=== PATIENT | female | born 2000 | race Caucasian/White ===

== ENCOUNTER 2019-12-09 03:22 | Emergency (ER) | payer OTHER, MEDICAID ==
[~2019-12-09] VITALS: Ht 160 cm; Wt 82.1 kg
[2019-12-09 03:49] LABS: ABSOLUTE BASOPHILS 0.1 thou/uL (0.0-0.2); ABSOLUTE EOSINOPHILS 0.3 thou/uL (0.0-0.7); ABSOLUTE LYMPHOCYTES 3.9 thou/uL (0.8-5.3); ABSOLUTE MONOCYTES 0.8 thou/uL (0.0-1.2); ABSOLUTE NEUTROPHILS 6.2 thou/uL (1.6-8.1); BASOPHILS 0.7 %; EOSINOPHILS 2.9 %; HEMATOCRIT 37.2 % (37.0-47.0); HEMOGLOBIN 12.3 gm/dL (12.0-15.0); LYMPHOCYTES 34.2 %; MCH 25.8 pg (26.0-34.0); MCV 78.1 fL (80.0-100.0); MONOCYTES 7.3 %; MPV 8.3 fl. (7.2-11.1); NUCLEATED RBCS 0 /100WBC; PLATELET COUNT* 335 thou/uL (150-400); POLYS 54.9 %; RBC 4.76 mil/uL (4.20-5.00); RDW-CV 15.5 % (10.5-14.5); WBC 11.4 thou/uL (4.0-11.0)
[2019-12-09 04:06] LABS: CREATININE 0.9 mg/dL (0.6-1.3); POTASSIUM 3.5 mmol/L (3.5-5.1)
[2019-12-09 04:10] LABS: ALBUMIN 3.9 g/dL (3.4-5.0); TOTAL BILIRUBIN 0.3 mg/dL (<0.1-1.0); TOTAL PROTEIN 8.2 g/dL (6.4-8.2)
[2019-12-09 04:42] LABS: URINE BILIRUBIN NEGATIVE (Negative); URINE BLOOD NEGATIVE (Negative); URINE CLARITY CLEAR; URINE COLOR YELLOW; URINE GLUCOSE-RANDOM NEGATIVE (Negative); URINE KETONES NEGATIVE (Negative); URINE LEUKOCYTES-REFLEX NEGATIVE (Negative); URINE NITRITE-REFLEX NEGATIVE (Negative); URINE PROTEIN NEGATIVE (Negative); URINE UROBILINOGEN 0.2 E.U./dl (0.2-1.0)
[2019-12-09] MEDS ORDERED: HYDROCODON-ACE1 EAC7 PO (06:10)
[2019-12-09] MEDS ORDERED: ZOFRAN ODT4 MG PO (06:10)
[2019-12-09] MEDS ORDERED: FLAGYL500 M1 PO (06:10)
[2019-12-09 06:24] VITALS: BP 151/86
== END 2019-12-09 06:38 | disposition home or self-care (01) ==
LOC: M.ERS 03:22
PROVIDERS: Personal Emergency Response Attendant
DX: K80.00 Calculus of gallbladder with acute cholecystitis without obstruction (principal); R42 Dizziness and giddiness

== ENCOUNTER 2020-05-21 18:34 | Emergency (ER) | payer OTHER ==
[~2020-05-21] VITALS: Ht 160 cm; Wt 74.8 kg
[~2020-05-21 18:34] MED LIST: FLAGYL500 M1 PO; HYDROCODON-ACE1 EAC7 PO; ZOFRAN ODT4 MG PO
[2020-05-21] MEDS ORDERED: PROZAC 10 MG CA10 MG PO (18:56)
[2020-05-21] MEDS ORDERED: FLEXERIL PO (20:19)
[2020-05-21 20:33] VITALS: BP 115/46
== END 2020-05-21 20:33 | disposition home or self-care (01) ==
LOC: M.ERS 18:34
DX: M62.830 Muscle spasm of back (principal); F32.9 Major depressive disorder, single episode, unspecified; Z90.49 Acquired absence of other specified parts of digestive tract; Z87.442 Personal history of urinary calculi; Z87.440 Personal history of urinary (tract) infections